=== PATIENT | male | born 1970 | race Hispanic/Latino ===

== ENCOUNTER 2024-10-14 20:57 | Emergency (ER) | payer SELFPAY ==
[~2024-10-14] VITALS: Ht 170.2 cm; Wt 79.4 kg
[2024-10-14 21:00] VITALS: PULSE 69; RESP 18; TEMP 97.4
[2024-10-14] MEDS: LIDOCAINE HCL 2% LOCAL 20 ML VIAL INJ ONE (22:03)
[2024-10-14] MEDS: BACITRACIN ZINC 0.9GM TP ONE (22:04)
[2024-10-14] MEDS: CEPHALEXIN MONOHYDRATE 250 MG CAP PO ONE (22:04)
[2024-10-14] MEDS: TETANUS/DIPHTHERIA TOX ADULT 0.5 ML SYR IM ONE (22:04)
[2024-10-14] MEDS ORDERED: CEPHALEXIN500 MG PO (22:55)
[2024-10-14 23:35] VITALS: BP 128/74; PULSE 71; RESP 18; TEMP 98.3; O2SAT 98
== END 2024-10-14 23:15 | disposition home or self-care (01) ==
LOC: FSED 21:31
DX: S06.0X0A Concussion without loss of consciousness, initial encounter (principal); S01.01XA Laceration without foreign body of scalp, initial encounter; W17.89XA Other fall from one level to another, initial encounter; Y92.89 Other specified places as the place of occurrence of the external cause
CPT/HCPCS: 12001; 70450; 90471; 90714; 99284; J2003